=== PATIENT | female | born 1995 | race Hispanic/Latino ===

== ENCOUNTER 2021-06-25 08:25 | Outpatient (CLI) | payer BC | END 2021-06-25 08:26 | disposition home or self-care (01) | LOC: CSHULT 08:25 | PROVIDERS: ATTEND Family Medicine | DX: R10.84 Generalized abdominal pain (principal) | CPT/HCPCS: 76700 ==

== ENCOUNTER 2022-08-05 08:33 | Outpatient (CLI) | payer BC | END 2022-08-05 08:34 | disposition home or self-care (01) | LOC: CSHRAD 08:33 | PROVIDERS: ATTEND Obstetrics & Gynecology | DX: N94.89 Other specified conditions associated with female genital organs and menstrual cycle (principal) | CPT/HCPCS: 58340; 74740 ==